=== PATIENT | female | born 1970 | race Caucasian/White ===

== ENCOUNTER 2017-06-15 07:49 | Day surgery (SDC) | payer BC ==
[~2017-06-15 07:49] MED LIST: Midazolam 1 MG/ML 2 ML SDV ONE; Propofol 200 MG/20 ML SDV ONE; fentaNYL 100 MCG/2 ML SDV ONE
[2017-06-15] MEDS ORDERED: Bupivacaine 0.5% 50 ML MDV ONE (09:05)
[2017-06-15] MEDS ORDERED: Lidocaine 1% with EPINEPHrine 1:100,000 50 ML MDV ONE (09:06)
[2017-06-15] MEDS ORDERED: Lactated Ringers 1,000 ML IV SCH (10:00)
[2017-06-15] MEDS ORDERED: IOHEXOL IVPUSH ONE (10:19)
[2017-06-15] MEDS ORDERED: ceFAZolin 2 GM in Premix Bag 1 BAG IV ONE (10:30)
--- NOTE | 2017-06-15 10:50 | MY ---
Galactogram Single Lt HISTORY: Patient has had prior left breast ultrasound in May showing dilated duct extending to t he skin surface in approximately the 10:00 position of the left breast. Possible tiny microabscess ad jacent to the deeper portion of this dilated duct. Patient also has had previous nipple ring that has been removed since October 20, 2016. She has had cellulitis of the left breast beginning in October 2016. The the previous discharged to the skin surface at the 10:00 position of the left breast is no longer present in the last 7-10 days per patient history. This area is fairly well healed over. She does sellers ve some discharge around the base of the nipple where the nipple ring was present. There was some initial clear discharge at the lateral base of the left nipple on only one occasion co nsequently this area was not cannulated. There was persistent yellow discharge from the base of the m edial aspect of the nipple where the nipple ring was previously present. This area was cannulated. COMPARISON: Prior ultrasound left breast 05/16/2017. FINDINGS: Informed consent was obtained. The persistent yellow fluid or discharge from the medial bas e of the nipple was evaluated as described above. Very small 30-gauge cannula was placed within this small hole with the yellow discharge. Contrast was attempted to be injected into this region. Left CC and medial lateral view was performed. There is no pocket of contrast in this region no connection t o breast ducts. These findings were discussed with the patient's surgeon. Impression: Ductogram demonstrates no connection to breast ducts to the area of discharge at the medial base of t he left nipple.
--- NOTE | 2017-06-15 11:41 | PN ---
DATE OF SERVICE: 06/15/2017 SUBJECTIVE: The patient and I discussed her ductogram which did not show any flow with respect to the nipple. I discussed her surgical plan. The patient has declined any surgery at this time. She just wants to wait further to see the natural course of this drainage. We again reviewed the papillomas, the role of biopsy, malignancies, potential for malignancy, the role of MRI, a 2nd opinion, and other risks not listed here. The patient did not undergo any surgical procedures today. She will follow up on a p.r.n. basis. I discussed with her that if she changes her mind any time, she may return as needed. Hermes Bhat MD /[id number]
== END 2017-06-15 11:10 | disposition home or self-care (01) ==
LOC: JP.SDS 07:49
PROVIDERS: ATTEND Surgery
DX: N64.89 Other specified disorders of breast (principal); N64.52 Nipple discharge
CPT/HCPCS: J2250; J2704; J3010; Q9965